=== PATIENT | female | born 1945 | race Two or more races ===

== ENCOUNTER 2020-01-15 | Observation (INO) | payer MEDICARE, OTHER ==
[~2020-01-15] VITALS: Ht 160 cm; Wt 66.1 kg
[2020-01-15 00:36] LABS: BASOPHILS # (AUTO) 0.02 x10^3/uL (0-0.1); BASOPHILS % (AUTO) 0 % (0-1); EOSINOPHILS # (AUTO) 0.15 x10^3/uL (0-0.4); EOSINOPHILS % (AUTO) 3 % (1-7); LYMPHOCYTES # (AUTO) 2.06 x10^3/uL (1-3.4); LYMPHOCYTES % (AUTO) 35 % (22-44); MD NO; MEAN CORPUSCULAR HEMOGLOBIN 28.4 pg (27.0-34.8); MEAN PLATELET VOLUME 9.4 fL (7.4-10.4); MONOCYTES # (AUTO) 0.51 x10^3/uL (0.2-0.8); MONOCYTES % (AUTO) 9 % (2-9); NEUTROPHILS # (AUTO) 3.11 x10^3/uL (1.8-6.8); NEUTROPHILS % (AUTO) 53 % (42-75); PLATELET COUNT 135 x10^3/uL (130-400); RED BLOOD COUNT 4.95 x10^6/uL (3.82-5.3); RED CELL DISTRIBUTION WIDTH 13.4 % (9.6-15.2)
[2020-01-15 00:43] LABS: ALBUMIN 3.1 g/dL (3.4-5.0); ANION GAP 7 mmol/L (5-15); CALCIUM 8.2 mg/dL (8.5-10.1); CHLORIDE 110 mmol/L (98-107); CREATININE 0.73 mg/dL (0.55-1.02)
[2020-01-15 00:47] LABS: TROPONIN I 0.028 ng/mL (0.000-0.045)
[2020-01-15] MEDS ORDERED: LISI-170 PO (01:17)
[2020-01-15] MEDS ORDERED: OMEP20CA20 PO (01:17)
[2020-01-15] MEDS ORDERED: RIVA20TA PO (01:17)
[2020-01-15] MEDS ORDERED: SOTA80TA PO (01:17)
[2020-01-15] MEDS ORDERED: LEVO75TA5 PO (01:17)
[2020-01-15] MEDS ORDERED: TOPI25TA8 PO (01:17)
[2020-01-15] MEDS ORDERED: SPIR25TA5 PO (01:17)
[2020-01-15] MEDS ORDERED: FURO20TA3 PO (01:17)
[2020-01-15] MEDS ORDERED: ACETAMINOPHEN 325 MG TABLET PO PRN (01:30)
[2020-01-15] MEDS ORDERED: ONDANSETRON 2MG/ML, 2ML IVPush PRN (01:30)
[2020-01-15] MEDS ORDERED: hydrALAzine 20 MG/ML, 1ML IVPush PRN (01:30)
[2020-01-15 02:01] LABS: INTERNATIONAL NORMALIZED RATIO 0.93 (0.93-1.1); PROTHROMBIN TIME 9.9 Seconds (9.6-11.5)
[2020-01-15 02:08] VITALS: BP 168/82
[2020-01-15 06:34] VITALS: BP 165/76
[2020-01-15] MEDS: INSULIN LISPRO 100 UNITS/ML, PEN SQ-INSULIN SCH ×4 (07:00→20:15)
[2020-01-15 08:27] LABS: TROPONIN I 0.022 ng/mL (0.000-0.045)
[2020-01-15] MEDS: FUROSEMIDE 20 MG TABLET PO SCH (08:39)
[2020-01-15] MEDS: LISINOPRIL 20 MG TABLET PO SCH (08:39)
[2020-01-15] MEDS: SPIRONOLACTONE 25 MG TABLET PO SCH (08:39)
[2020-01-15] MEDS: SOTALOL 80MG TABLET PO SCH ×2 (08:40→20:15)
[2020-01-15] MEDS: LEVOTHYROXINE 75 MCG TABLET PO SCH (08:40)
[2020-01-15] MEDS: OMEPRAZOLE 20 MG CAPSULE.DR PO SCH (08:40)
[2020-01-15] MEDS: TOPIRAMATE 25 MG TABLET PO SCH ×2 (08:40→20:15)
[2020-01-15] MEDS: RIVAROXABAN 20 MG TABLET PO SCH (08:42)
[2020-01-15 11:13] VITALS: BP 165/79
[2020-01-15 14:06] VITALS: BP 144/74
[2020-01-15 17:40] VITALS: BP 115/72
[2020-01-15 19:37] VITALS: BP 113/66
[2020-01-16 01:21] VITALS: BP 119/69
[2020-01-16 04:31] LABS: BASOPHILS # (AUTO) 0.01 x10^3/uL (0-0.1); BASOPHILS % (AUTO) 0 % (0-1); EOSINOPHILS # (AUTO) 0.11 x10^3/uL (0-0.4); EOSINOPHILS % (AUTO) 2 % (1-7); LYMPHOCYTES # (AUTO) 1.51 x10^3/uL (1-3.4); LYMPHOCYTES % (AUTO) 25 % (22-44); MD NO; MEAN CORPUSCULAR HEMOGLOBIN 28.4 pg (27.0-34.8); MEAN CORPUSCULAR HGB CONC 32.6 g/dL (32.4-35.8); MEAN CORPUSCULAR VOLUME 87.1 fL (80-100); MEAN PLATELET VOLUME 9.4 fL (7.4-10.4); MONOCYTES # (AUTO) 0.51 x10^3/uL (0.2-0.8); MONOCYTES % (AUTO) 9 % (2-9); NEUTROPHILS # (AUTO) 3.79 x10^3/uL (1.8-6.8); NEUTROPHILS % (AUTO) 64 % (42-75); PLATELET COUNT 141 x10^3/uL (130-400); RED BLOOD COUNT 5.09 x10^6/uL (3.82-5.3); RED CELL DISTRIBUTION WIDTH 13.6 % (9.6-15.2)
[2020-01-16 04:43] LABS: ANION GAP 8 mmol/L (5-15); CALCIUM 8.5 mg/dL (8.5-10.1); CHLORIDE 105 mmol/L (98-107); CREATININE 0.95 mg/dL (0.55-1.02)
[2020-01-16 05:21] VITALS: BP 122/72
[2020-01-16 07:05] VITALS: BP 104/68
[2020-01-16] MEDS: TOPIRAMATE 25 MG TABLET PO SCH (08:30)
[2020-01-16] MEDS: FUROSEMIDE 20 MG TABLET PO SCH (08:30)
[2020-01-16] MEDS: OMEPRAZOLE 20 MG CAPSULE.DR PO SCH (08:30)
[2020-01-16] MEDS: SPIRONOLACTONE 25 MG TABLET PO SCH (08:30)
[2020-01-16] MEDS: LISINOPRIL 20 MG TABLET PO SCH (08:30)
[2020-01-16] MEDS: SOTALOL 80MG TABLET PO SCH (08:30)
[2020-01-16] MEDS: RIVAROXABAN 20 MG TABLET PO SCH (08:30)
[2020-01-16] MEDS: LEVOTHYROXINE 75 MCG TABLET PO SCH (08:31)
[2020-01-16] MEDS: INSULIN LISPRO 100 UNITS/ML, PEN SQ-INSULIN SCH ×2 (08:33→11:51)
[2020-01-16] MEDS ORDERED: HYDR-3341 PO (09:25)
[2020-01-16] MEDS ORDERED: LEVO100T5 PO (09:25)
[2020-01-16 11:45] VITALS: BP 146/75
== END 2020-01-16 12:04 | disposition home or self-care (01) ==
LOC: ED 00:56 → EDIP 01:13 → INTOOBSV 01:13 → 5SO 01:58
PROVIDERS: ADMIT Internal Medicine; ATTEND Hospitalist
DX: I48.20 Chronic atrial fibrillation, unspecified (principal); I47.1 Supraventricular tachycardia; E11.9 Type 2 diabetes mellitus without complications; M79.7 Fibromyalgia; G43.909 Migraine, unspecified, not intractable, without status migrainosus; I11.0 Hypertensive heart disease with heart failure; I50.9 Heart failure, unspecified; F17.200 Nicotine dependence, unspecified, uncomplicated; E89.0 Postprocedural hypothyroidism; Z90.710 Acquired absence of both cervix and uterus; Z79.899 Other long term (current) drug therapy; Z79.01 Long term (current) use of anticoagulants
CPT/HCPCS: 36415; 80048; 82040; 82962; 83036; 83735; 84443; 84484; 85025; 85610; 93005; 93306; 99285; G0378; J1815